=== PATIENT | male | born 1985 | race Two or more races ===

== ENCOUNTER 2022-02-19 05:35 | Emergency (ER) | payer OTHER ==
[~2022-02-19] VITALS: Ht 188 cm; Wt 79.4 kg
== END 2022-02-19 06:44 | disposition home or self-care (01) ==
LOC: ER 05:35
DX: S61.431A Puncture wound without foreign body of right hand, initial encounter (principal); W46.1XXA Contact with contaminated hypodermic needle, initial encounter; Y93.89 Activity, other specified; Y92.238 Other place in hospital as the place of occurrence of the external cause; Y99.8 Other external cause status